=== PATIENT | female | born 1985 | race American Indian/Alaskan Native ===

== ENCOUNTER 2016-10-06 13:25 | Emergency (ER) | payer SELFPAY ==
[2016-10-06 14:34] LABS: Basophils % (Auto) 0.3 % (0.0-1.8); Eosinophils % (Auto) 5.4 % (0.0-4.3); Hematocrit 32.7 % (30.3-42.9); Hemoglobin 10.6 gm/dl (10.1-14.3); Mean Corpuscular HGB Conc 32 % (30-34); Mean Corpuscular Volume 78 fl (79-97); Platelet Count 169 K/mm3 (140-440); Red Blood Count 4.22 M/mm3 (3.65-5.03); Red Cell Distribution Width 15.4 % (13.2-15.2); White Blood Count 8.1 K/mm3 (4.5-11.0)
[2016-10-06 14:36] LABS: Mean Corpuscular Hemoglobin 25 pg (28-32)
[2016-10-06 14:46] LABS: Anion Gap 15 mmol/L; Blood Urea Nitrogen 10 mg/dL (7-17); Calcium 9.2 mg/dL (8.4-10.2); Carbon Dioxide 22 mmol/L (22-30); Chloride 102.5 mmol/L (98-107); Glucose 86 mg/dL (65-100); Potassium 3.8 mmol/L (3.6-5.0); Sodium 136 mmol/L (137-145)
--- NOTE | 2016-10-06 18:37 | Emergency Department Report ---
ED Chest Pain HPI - General Chief Complaint: Chest Pain Stated Complaint: CHEST PAIN Time Seen by Provider: 10/06/16 18:34 Source: patient Mode of arrival: Ambulatory Limitations: No Limitations - Related Data Home Medications Medication Instructions Recorded Confirmed Last Taken No Known Home Medications [No 10/06/16 10/06/16 Unknown Reported Home Medications] Allergies Allergy/AdvReac Type Severity Reaction Status Date / Time No Known Allergies Allergy Verified 10/06/16 13:35 ANNI score - Anni Score Age > 65: (0) No Aspirin use within the Past 7 Days: (0) No 3 or more CAD Risk Factors: (0) No 2 or more Angina events in past 24 hrs: (0) No Known CAD with more than 50% Stenosis: (0) No Elevated Cardiac Markers: (0) No ST Deviation Greater than 0.5mm: (0) No ANNI Score: 0 ED Review of Systems ROS: Stated complaint: CHEST PAIN Other details as noted in HPI ED Past Medical Hx - Past Medical History Previous Medical History?: No - Surgical History Past Surgical History?: No - Social History Smoking Status: Never Smoker Substance Use Type: None - Medications Home Medications: Home Medications Medication Instructions Recorded Confirmed Last Taken Type No Known Home Medications [No 10/06/16 10/06/16 Unknown History Reported Home Medications] ED Physical Exam - General Limitations: No Limitations ED Course Vital Signs 10/06/16 10/06/16 10/06/16 13:30 18:32 18:33 Temperature 97.5 F L Pulse Rate 90 90 Respiratory 16 16 Rate Blood Pressure 109/65 116/65 O2 Sat by Pulse 100 100 100 Oximetry 10/06/16 10/06/16 10/06/16 18:34 18:36 18:38 Temperature Pulse Rate 87 99 H 90 Respiratory 17 17 19 Rate Blood Pressure 116/65 116/65 116/65 O2 Sat by Pulse 100 100 100 Oximetry 10/06/16 10/06/16 10/06/16 18:40 18:42 18:44 Temperature Pulse Rate 90 83 86 Respiratory 17 17 18 Rate Blood Pressure 116/65 116/65 116/65 O2 Sat by Pulse 100 100 100 Oximetry 10/06/16 10/06/16 10/06/16 18:46 18:48 18:50 Temperature Pulse Rate 87 86 81 Respiratory 17 17 16 Rate Blood Pressure 116/65 116/65 116/65 O2 Sat by Pulse 100 100 100 Oximetry 10/06/16 10/06/16 10/06/16 18:52 18:54 18:56 Temperature Pulse Rate 92 H 90 82 Respiratory 21 15 14 Rate Blood Pressure 116/65 116/65 116/65 O2 Sat by Pulse 100 99 100 Oximetry 10/06/16 10/06/16 10/06/16 18:58 19:00 19:02 Temperature Pulse Rate 78 87 79 Respiratory 14 19 15 Rate Blood Pressure 116/65 106/59 106/59 O2 Sat by Pulse 100 100 Oximetry 10/06/16 10/06/16 10/06/16 19:04 19:06 19:08 Temperature Pulse Rate 82 85 85 Respiratory 16 17 19 Rate Blood Pressure 106/59 106/59 106/59 O2 Sat by Pulse 100 100 100 Oximetry 10/06/16 10/06/16 10/06/16 19:10 19:12 19:14 Temperature Pulse Rate 99 H 91 H 86 Respiratory 14 18 17 Rate Blood Pressure 106/59 106/59 106/59 O2 Sat by Pulse 100 100 100 Oximetry 10/06/16 10/06/16 10/06/16 19:15 19:16 19:18 Temperature Pulse Rate 93 H 86 Respiratory 16 16 18 Rate Blood Pressure 106/59 106/59 O2 Sat by Pulse 100 100 100 Oximetry 10/06/16 10/06/16 10/06/16 19:19 19:59 20:01 Temperature Pulse Rate 107 H Respiratory 15 Rate Blood Pressure 106/59 106/59 106/59 O2 Sat by Pulse 83 L 98 Oximetry 10/06/16 10/06/16 10/06/16 20:02 20:04 20:08 Temperature Pulse Rate Respiratory Rate Blood Pressure 106/59 106/59 106/59 O2 Sat by Pulse 93 93 Oximetry 10/06/16 10/06/16 10/06/16 20:10 20:11 20:12 Temperature Pulse Rate Respiratory Rate Blood Pressure 106/59 106/59 106/59 O2 Sat by Pulse 92 90 88 Oximetry 10/06/16 10/06/16 20:32 20:33 Temperature Pulse Rate Respiratory Rate Blood Pressure 106/59 106/59 O2 Sat by Pulse 77 L 88 Oximetry ED Medical Decision Making - Lab Data Result diagrams: 10/06/16 13:53 10/06/16 13:53 - EKG Data EKG shows normal: sinus rhythm, axis (normal), intervals (nromal), ST-T waves ( TWI in III and V3, non consecutive leads, No STEMI) Rate: normal - Medical Decision Making Scars the results with the patient. Patient has been having this chest wall pain with movement reproducible for the last month. I do not presume this is a PE or cardiac event. Patient is with a beta Quant consistent with a first trimester and patient cannot get a VQ scan. Patient also cannot get a CTA due to unavailable services at this time. It was explained to the patient if she has a more chest pain devlopment of shortness of breath to return to the closest ER. Patient understood the patient to follow up with her primary care, take vitamins, and take Tylenol for pain control. Critical care attestation.: If time is entered above; I have spent that time in minutes in the direct care of this critically ill patient, excluding procedure time. ED Disposition Clinical Impression: Chest wall pain, Disposition: DISCHARGED TO HOME OR SELFCARE Is pt being admited?: No Does the pt Need Aspirin: No Condition: Stable Instructions: Chest Pain (ED), (ED) Referrals: PRIMARY CARE, [Primary Care Provider] - 3-5 Days
[2016-10-07 00:01] VITALS: BP 106/61
--- NOTE | 2016-10-07 00:30 | Nuclear Medicine Report ---
FINAL REPORT EXAM: NM LUNG SCAN PERF/VENT HISTORY: rule out PE TECHNIQUE: Nuclear medicine lung VQ scan performed using approximately 10 mCi of xenon-133 gas and 3.3 mCi of technetium 99m MAA, respectively. Planar images of lungs obtained during both phases. PRIORS: None. FINDINGS: Ventilation scan shows near homogenous radionuclide accumulation without significantly delayed washout. Perfusion scan shows mildly heterogeneous radionuclide accumulation conforming to the outlines of both lungs. No significant, segmental or mismatched defects identified. IMPRESSION: 1. Low probability for pulmonary embolus embolism.
--- NOTE | 2016-10-07 08:44 | XRay Report ---
CHEST TWO VIEWS: 10/06/16 13:25:00 CLINICAL: Chest pain. COMPARISON: None FINDINGS: Normal heart and pulmonary vasculature. The lungs are normally expanded and clear.The bones and soft tissues are unremarkable. IMPRESSION: Normal chest.
== END 2016-10-07 00:02 | disposition home or self-care (01) ==
LOC: ED 13:25
DX: O26.891 Other specified pregnancy related conditions, first trimester (principal); R07.89 Other chest pain; Z3A.00 Weeks of gestation of pregnancy not specified
CPT/HCPCS: 36415; 71020; 78582; 80048; 81025; 84484; 84702; 85025; 85379; 93005; 93010; 99285; A9540; A9558